=== PATIENT | female | born 1990 | race African-American/Black ===

== ENCOUNTER 2019-10-15 12:41 | Emergency (ER) | payer OTHER ==
--- NOTE | 2019-10-15 13:33 | ER Document Report ---
ED Medical Screen (RME) - General Chief Complaint: Dizziness Stated Complaint: WEAKNESS Notes: 29-year-old female with a history of anxiety presenting today with 2 weeks of intermittent dizziness and lightheadedness. States that the symptoms occur mostly when she goes from sitting to standing and in a moving vehicle but do occur at rest. Reports that when the symptoms do occur she feels that the room is spinning around her. Symptoms last for 30 minutes to an hour. Is not taking any medications. She denies currently being dizzy but does not feel that she is all here. In the past she has had episodes of lightheadness from going from sitting to standing too quickly but no associated dizziness. She was seen at [facility] last week and they did not find any abnormal findings. Her episodes have continued. 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 Also reports that her ears have been burning bilaterally for months and she keeps being told that it is due to her allergies. Uncertain of last menstrual period as she came off control a month ago. Denies additional symptoms. I have greeted and performed a rapid initial assessment of this patient. A comprehesive ED assessment and evaluation of this patient, analysis of test results and completion of the medical decision-making process will be conducted by additional ED providers. - Related Data Allergies/Adverse Reactions: Penicillins Allergy (Verified 10/15/19 13:06) sulfamethoxazole [From Bactrim] Allergy (Verified 10/15/19 13:06) trimethoprim [From Bactrim] Allergy (Verified 10/15/19 13:06) Home Medications: valtrex Past Medical History - Social History Chew tobacco use (# tins/day): No Frequency of alcohol use: Occasional Drug Abuse: None - Past Medical History Cardiac Medical History: Reports: None Pulmonary Medical History: Reports: None Endocrine Medical History: Reports: None Review of Systems - Review of Systems Constitutional: See HPI EENT: See HPI Cardiovascular: No symptoms reported Respiratory: No symptoms reported Gastrointestinal: No symptoms reported Genitourinary: No symptoms reported Physical Exam - Vital signs Vitals: Temp Pulse Resp BP Pulse Ox 98.8 F 105 H 14 121/74 99 10/15/19 12:46 10/15/19 12:46 10/15/19 12:46 10/15/19 12:46 10/15/19 12:46 - Notes Notes: Patient in no acute distress. Pupils equal round reactive to light, extraocular movements intact. Heart regular rate rhythm no murmurs rubs or gallops. Course - Vital Signs Vital signs: Temp Pulse Resp BP Pulse Ox 98.8 F 105 H 14 121/74 99 10/15/19 13:06 10/15/19 12:46 10/15/19 12:46 10/15/19 12:46 10/15/19 12:46
[2019-10-15] MEDS ORDERED: MECLIZINE HCL 25 MG TABLET PO ONE (13:36)
[2019-10-15 14:25] LABS: ABSOLUTE LYMPHOCYTES (AUTO) 1.8 10^3/uL (0.5-4.7); ABSOLUTE MONOCYTES (AUTO) 0.4 10^3/uL (0.1-1.4); ABSOLUTE NEUT (AUTO) 1.8 10^3/uL (1.7-8.2); BASOPHILS % (AUTO) 0.5 % (0-2); HEMATOCRIT 41.6 % (36.0-47.0); HEMOGLOBIN 14.2 g/dL (12.0-15.5); LYMPHOCYTES % (AUTO) 45.3 % (13-45); MEAN CORPUSCULAR HEMOGLOBIN 31.3 pg (27.0-33.4); MEAN CORPUSCULAR HGB CONC 34.1 g/dL (32.0-36.0); MEAN CORPUSCULAR VOLUME 92 fl (80-97); MONOCYTES % (AUTO) 9.6 % (3-13); PLATELET COUNT 312 10^3/uL (150-450); RED BLOOD COUNT 4.53 10^6/uL (3.72-5.28); RED CELL DISTRIBUTION WIDTH 12.6 % (11.5-14.0); SEGMENTED NEUTROPHILS % (AUTO) 43.6 % (42-78); TOTAL CELLS COUNTED % (AUTO) 100 %
[2019-10-15 14:32] LABS: APPEARANCE,URINE SLIGHTLY-CLOUDY; BILIRUBIN,URINE NEGATIVE (NEGATIVE); COLOR,URINE AMBER; GLUCOSE, URINE NEGATIVE (NEGATIVE); KETONES,URINE NEGATIVE (NEGATIVE); LEUKOCYTE ESTERASE,URINE NEGATIVE (NEGATIVE); NITRITE,URINE NEGATIVE (NEGATIVE); PROTEIN,URINE NEGATIVE (NEGATIVE); URINE SPECIFIC GRAVITY 1.021; UROBILINOGEN,URINE NEGATIVE mg/dL (<2.0)
[2019-10-15 14:45] LABS: ALBUMIN 4.2 g/dL (3.5-5.0); ALKALINE PHOSPHATASE 51 U/L (38-126); ASPARTATE AMINO TRANSFERASE 20 U/L (14-36); BILIRUBIN,TOTAL 0.4 mg/dL (0.2-1.3); BLOOD UREA NITROGEN 10 mg/dL (7-20); CALCIUM 9.5 mg/dL (8.4-10.2); GLUCOSE 85 mg/dL (75-110); POTASSIUM 4.8 mmol/L (3.6-5.0); TOTAL PROTEIN 7.5 g/dL (6.3-8.2)
[2019-10-15 14:51] LABS: CARBON DIOXIDE 28 mmol/L (22-30); CHLORIDE 104 mmol/L (98-107)
[2019-10-15 14:54] LABS: ANION GAP 4 (5-19)
--- NOTE | 2019-10-15 16:33 | RADIOLOGY REPORT (SQ) ---
EXAM DESCRIPTION: CT FACIAL AREA WITHOUT IMAGES COMPLETED DATE/TIME: 10/15/2019 4:16 pm REASON FOR STUDY: sinus pain, vertigo COMPARISON: None. TECHNIQUE: Noncontrasted images through the facial bones and orbits windowed for bone and soft tissu e. Additional coronal and sagittal reconstructed images reviewed. All images stored on PACS. All CT scanners at this facility use dose modulation, iterative reconstruction, and/or weight based d osing when appropriate to reduce radiation dose to as low as reasonably achievable (ALARA). [facility]: Dose Right [facility]: CareDose [facility]: Dose Right [facility]: Teradose 4D [facility]: [employer] RADIATION DOSE: CT Rad equipment meets quality standard of care and radiation dose reduction techniq ues were employed. CTDIvol: 30.4 mGy. DLP: 602 mGy-cm. mGy. LIMITATIONS: None. FINDINGS: FACIAL BONES: No fracture or bone lesion. ORBITS: Intact. No fracture. Symmetric intact globes and retroorbital soft tissues. PARANASAL SINUSES: There is a retention cyst or polyp in the left maxillary sinus. The rim is calcif ied consistent with chronic process. No air-fluid levels. The remainder of the paranasal sinuses ar e clear. SOFT TISSUES: No mass or edema. INFERIOR BRAIN: Limited view. No acute findings. OTHER: No other significant finding. IMPRESSION: Chronic changes in the left maxillary sinus as described. No other significant findings . TECHNICAL DOCUMENTATION: JOB ID: [id number] Quality ID # [id number]: Final reports with documentation of one or more dose reduction techniques (e.g., Au tomated exposure control, adjustment of the mA and/or kV according to patient size, use of iterative reconstruction technique) 2010 [employer]- All Rights Reserved Reading location - IP/workstation name: [email or web address]
--- NOTE | 2019-10-15 17:19 | ER Document Report ---
HPI - HPI Time Seen by Provider: 10/15/19 15:12 Pain Level: 3 Notes: RME HPI: 29-year-old female with a history of anxiety presenting today with 2 weeks of intermittent dizziness and lightheadedness. States that the symptoms occur mostly when she goes from sitting to standing and in a moving vehicle but do occur at rest. Reports that when the symptoms do occur she feels that the room is spinning around her. Symptoms last for 30 minutes to an hour. Is not taking any medications. She denies currently being dizzy but does not feel that she is all here. In the past she has had episodes of lightheadness from going from sitting to standing too quickly but no associated dizziness. She was seen at [facility] last week and they did not find any abnormal findings. Her episodes have continued. 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 Also reports that her ears have been burning bilaterally for months and she keeps being told that it is due to her allergies. Uncertain of last menstrual period as she came off control a month ago. Denies additional symptoms. - ROS Systems Reviewed and Negative: Yes All other systems reviewed and negative - CONSTITUTIONAL Constitutional: DENIES: Fever, Chills - EENT EENT: REPORTS: Ear Pain - NEURO Neurology: REPORTS: Dizzinesss / Vertigo Past Medical History - General Information source: Patient - Social History Smoking Status: Never Smoker Chew tobacco use (# tins/day): No Frequency of alcohol use: Occasional Drug Abuse: None Family History: Reviewed & Not Pertinent - Past Medical History Cardiac Medical History: Reports: None Pulmonary Medical History: Reports: None Endocrine Medical History: Reports: None Vertical Provider Document - CONSTITUTIONAL Notes: PHYSICAL EXAMINATION: GENERAL: Well-appearing, well-nourished and in no acute distress. HEAD: Atraumatic, normocephalic. EYES: Pupils equal round and reactive to light, extraocular movements intact, c onjunctiva are normal. ENT: Nares patent erythematous, oropharynx clear without exudates. Moist mucous membranes. Bilateral TMs unremarkable NECK: Normal range of motion, supple without lymphadenopathy LUNGS: Breath sounds clear to auscultation bilaterally and equal. No wheezes rales or rhonchi. HEART: Regular rate and rhythm without murmurs ABDOMEN: Soft, nontender, nondistended abdomen. No guarding, no rebound. No masses appreciated. Female : deferred Musculoskeletal: Normal range of motion, no pitting or edema. No cyanosis. NEUROLOGICAL: Cranial nerves grossly intact. Normal speech, normal gait. Normal sensory, motor exams PSYCH: Normal mood, normal affect. SKIN: Warm, Dry, normal turgor, no rashes or lesions noted. Course - Re-evaluation Re-evalutation: Patient appears well, nontoxic, vital signs reviewed. Patient reports she feels improved after administration of the meclizine here in the emergency department. She does report feeling a intermittent tingling sensation around her entire mouth. She is also concerned that she may have something going on in her sinuses due to having a sinus surgery in May and having no follow-up. Patient would like imaging done today. CT of the sinuses shows a left-sided sinus polyp. This is the area that patient had surgery on back in May. Test results were reviewed with patient, she was given a copy of her CT results as she has an appointment with her ENT tomorrow morning. Patient will follow-up. - Vital Signs Vital signs: Temp Pulse Resp BP Pulse Ox 98.8 F 105 H 14 121/74 99 10/15/19 13:06 10/15/19 12:46 10/15/19 12:46 10/15/19 12:46 10/15/19 12:46 - Laboratory Result Diagrams: 10/15/19 13:46 10/15/19 13:46 Laboratory results interpreted by me: 10/15/19 10/15/19 13:46 13:46 Lymph % (Auto) 45.3 H Sodium 135.8 L Anion Gap 4 L Discharge - Discharge Clinical Impression: Nasal sinus polyp, Dizziness, Vertigo Condition: Stable Disposition: HOME, SELF-CARE Additional Instructions: Please take medications as prescribed. Please follow-up with your ENT doctor tomorrow as discussed. Prescriptions: Ketorolac Tromethamine [Toradol 10 mg Tablet] 10 mg PO Q6HP PRN #20 tablet PRN Reason: Meclizine HCl [Antivert 25 mg Tablet] 25 mg PO TID PRN #21 tablet PRN Reason: Referrals: SARA MONTENEGRO MD [ACTIVE STAFF] - Follow up as needed
[2019-10-15 17:26] VITALS: BP 125/83
--- NOTE | 2019-10-15 17:34 | EKG REPORT ---
SEVERITY:- BORDERLINE ECG - SINUS RHYTHM PROBABLE LEFT ATRIAL ABNORMALITY : Confirmed by: Chelsea Ling MD 15-Oct-2019 17:34:30
== END 2019-10-15 17:26 | disposition home or self-care (01) ==
LOC: ER 12:41
DX: R42 Dizziness and giddiness (principal); Z88.0 Allergy status to penicillin; Z88.3 Allergy status to other anti-infective agents; J33.8 Other polyp of sinus
CPT/HCPCS: 36415; 70486; 80053; 81001; 81025; 85025; 93005; 93010; 99285

== ENCOUNTER 2020-04-08 17:50 | Emergency (ER) | payer OTHER ==
[2020-04-08] MEDS ORDERED: ACETAMINOPHEN 325 MG TABLET PO ONE (18:04)
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
[2020-04-08 18:27] LABS: ABSOLUTE EOSINOPHILS # (AUTO) 0.1 10^3/uL (0.0-0.6); ABSOLUTE LYMPHOCYTES (AUTO) 2.8 10^3/uL (0.5-4.7); ABSOLUTE MONOCYTES (AUTO) 0.2 10^3/uL (0.1-1.4); ABSOLUTE NEUT (AUTO) 1.3 10^3/uL (1.7-8.2); BASOPHILS % (AUTO) 0.9 % (0-2); EOSINOPHILS % (AUTO) 1.6 % (0-6); HEMOGLOBIN 13.7 g/dL (12.0-15.5); LYMPHOCYTES % (AUTO) 62.4 % (13-45); MEAN CORPUSCULAR HEMOGLOBIN 32.2 pg (27.0-33.4); MEAN CORPUSCULAR HGB CONC 35.9 g/dL (32.0-36.0); MEAN CORPUSCULAR VOLUME 90 fl (80-97); MONOCYTES % (AUTO) 5.5 % (3-13); PLATELET COUNT 325 10^3/uL (150-450); RED BLOOD COUNT 4.24 10^6/uL (3.72-5.28); RED CELL DISTRIBUTION WIDTH 13.7 % (11.5-14.0); SEGMENTED NEUTROPHILS % (AUTO) 29.6 % (42-78); TOTAL CELLS COUNTED % (AUTO) 100 %; WHITE BLOOD COUNT 4.4 10^3/uL (4.0-10.5)
--- NOTE | 2020-04-08 18:41 | ER Document Report ---
Doctor's Note Notes: 04/08/20 18:40 Received call from radiologist that patient has a left subarachnoid hemorrhage. I did notify the charge nurse, Susie, at [address] Gayle Samson, ER supervising physician of patient's CT findings per radiology. Patient will go into room 15 for further examination immediately.
[2020-04-08 18:43] LABS: ALBUMIN 4.3 g/dL (3.5-5.0); ALKALINE PHOSPHATASE 56 U/L (38-126); ANION GAP 5 (5-19); ASPARTATE AMINO TRANSFERASE 22 U/L (14-36); BILIRUBIN,TOTAL 0.3 mg/dL (0.2-1.3); BLOOD UREA NITROGEN 16 mg/dL (7-20); CARBON DIOXIDE 29 mmol/L (22-30); CHLORIDE 102 mmol/L (98-107); GLUCOSE 161 mg/dL (75-110); POTASSIUM 4.3 mmol/L (3.6-5.0); TOTAL PROTEIN 7.8 g/dL (6.3-8.2)
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
[2020-04-08 19:00] LABS: C-REACTIVE PROTEIN < 5.0 mg/L (<10.0)
[2020-04-08 19:05] LABS: ERYTHROCYTE SEDIMENTATION RATE 18 mm/hr (0-20)
[2020-04-08] MEDS ORDERED: LEVETIRACETAM 1000 MG/NACL-ISO 1,000 MG/100 ML RTUPB IV ONE (19:13)
[2020-04-08] MEDS ORDERED: TRANEXAMIC ACID INJ/PF 1,000 MG/10 ML SDV IV ONE (19:15)
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
[2020-04-08 20:25] VITALS: BP 117/70
--- NOTE | 2020-04-08 21:15 | EKG REPORT ---
SEVERITY:- ABNORMAL ECG - SINUS RHYTHM EARLY PRECORDIAL TRANSITION , CLINICAL CORRELATION NEEDED. : Confirmed by: Desmond Painter MD 08-Apr-2020 21:14:27
== END 2020-04-08 20:27 | disposition short-term general hospital (02) ==
LOC: ER 17:50
DX: I60.9 Nontraumatic subarachnoid hemorrhage, unspecified (principal); R51.9 Headache, unspecified; Z88.0 Allergy status to penicillin; Z88.3 Allergy status to other anti-infective agents; Z20.828 Contact with and (suspected) exposure to other viral communicable diseases
CPT/HCPCS: 93005; 99285; 96375; 96365; 36415; 84702; 85025; 85652; 0241U ×4; 86140; 80053; 84484; 70450; 93010; J1953; J3490; C9803

== ENCOUNTER 2020-04-12 03:04 | Emergency (ER) | payer OTHER ==
--- NOTE | 2020-04-12 03:32 | ER Document Report ---
ED General - General Chief Complaint: Headache Stated Complaint: HEADACHE Time Seen by Provider: 04/12/20 03:32 Primary Care Provider: ABDIEL ART MD [ACTIVE STAFF] - Follow up as needed - HPI Context: Chief Complaint: [Headache] [This is a 29-year-old female who presents to the emergency department complaining of headache. Patient was seen here 4 days ago for a severe headache, was found to have a subarachnoid hemorrhage on her head CT and was transferred to [facility] for further care. Patient was given TXA and Keppra prior to transfer. Patient states that she was discharged from [facility] 2 days ago with instructions to use Tylenol every 4 hours as needed for headache. Patient states she was doing this for roughly the first 24 hours after discharge from the hospital. Patient states that she has gone approximately 8 or 9 hours without a dose of Tylenol and then prior to coming into notice onset of sharp frontal headache that she says was similar to the headache that brought her in 4 days ago. Patient states her headache was initially a 4 on a scale of 0-5 but after taking Tylenol now it is down to a 2.5 on a scale of 0-5. Patient is inquiring as to whether or not she can be given a prescription for Fioricet which was offered to her at [facility] prior to kathy bajwa but she initially refused, just deciding instead to take Tylenol only. Patient was advised that she would probably experience headaches for the next 2 weeks or so. ] History obtained from [patient] Symptoms began:[Approximately 2 hours prior to arrival] Onset: [Sudden] Timing: [While sleeping] Quality: [Sharp] Intensity: [Initially 4 out of 5 now 2.5] Location: [Front of head] Radiation: [None] Aggravating factors: [none] Relieving factors: [none] [Denies] SOB [Denies] nausea [Denies] vomiting [Denies] sweats [Denies] fever [Denies] cough [Denies] calf or leg swelling or pain - Related Data Allergies/Adverse Reactions: Penicillins Allergy (Verified 04/12/20 03:13) sulfamethoxazole [From Bactrim] Allergy (Verified 04/12/20 03:13) trimethoprim [From Bactrim] Allergy (Verified 04/12/20 03:13) Past Medical History - General Information source: Patient - Social History Smoking Status: Never Smoker Drug Abuse: None Family History: Reviewed & Not Pertinent - Medical History Medical History: Other - Subarachnoid hemorrhage 04/08/2020 Review of Systems - Review of Systems Notes: Review of systems as below unless otherwise stated in HPI. CONSTITUTIONAL [No] fever, [No] chills. EYES [No] eye pain. ENT [No] URI symptoms, [No] sore throat, [No] ear pain. CARDIOVASCULAR [No] chest pain, [No] palpitations, [No] edema. RESPIRATORY [No] Cough, [No] SOB, [No] wheezing. GASTROINTESTINAL [No] abdominal pain, [No] nausea, [No] Diarrhea, [No] Vomiting, [No] constipation, [No] melena, [No] rectal bleeding. GENITOURINARY [No] dysuria, [No] urinary frequency, [No] hematuria, [No] urinary urgency, [No] vaginal discharge, [No] vaginal bleeding. MUSCULOSKELETAL [No] Back pain. SKIN [No] Rash. NEUROLOGIC Positive headache, [No] recent seizures, [No] paralysis,[No] parathesias. ENDOCRINE [No] polyuria. HEMO/LYMPATIC [No] easy brusing PSYCHIATRIC [No] depression. Physical Exam - Vital signs Vitals: Temp Pulse BP Pulse Ox 97.6 F 66 124/70 100 04/12/20 03:09 04/12/20 03:09 04/12/20 03:09 04/12/20 03:09 - Notes Notes: CONSTITUTIONAL [Vital signs reviewed, Patient appears comfortable, Alert and oriented X 3, Normal stature. GCS 15] HEAD [Atraumatic, Normocephalic.] EYES [Eyes are normal to inspection, No discharge from eyes, Extraocular muscles intact, Sclera are normal, Conjunctiva are normal.] ENT [External ears normal to inspection, Nose examination normal, Mouth normal to inspection.] NECK [Normal ROM, No jugular venous distention, No meningeal signs, ] RESPIRATORY CHEST [Chest is nontender, Breath sounds normal, No respiratory distress.] CARDIOVASCULAR [RRR, No murmurs, Normal S1 S2, No rub, No gallop.] ABDOMEN [Abdomen is nontender, No pulsatile masses, No other masses, Bowel sounds normal, No distension, No peritoneal signs, No hernias.] BACK [There is no CVA Tenderness, There is no tenderness to palpation, Normal inspection.] UPPER EXTREMITY [Inspection normal, No cyanosis, No clubbing, No edema, LOWER EXTREMITY [Inspection normal, No cyanosis, No clubbing, No edema, No calf tenderness, NEURO [No focal motor deficits, No focal sensory deficits, Speech normal.] SKIN [Skin is warm, Skin is dry, Skin is normal color.] PSYCHIATRIC [Normal affect. ] Course - Re-evaluation Re-evalutation: 04/12/20 06:52 Patient states her headache has resolved. Results of ED MSE and consultation with Dr. Gonzalez with [facility] neurosurgery discussed with patient. All questions were answered prior to discharge. Emergency signs and symptoms, reasons to return to the emergency department discussed with patient. - Vital Signs Vital signs: Temp Pulse Resp BP Pulse Ox 97.6 F 66 17 127/85 H 99 04/12/20 03:09 04/12/20 03:09 04/12/20 05:01 04/12/20 05:00 04/12/20 05:01 - Laboratory Results Result Diagrams: 04/12/20 03:34 04/12/20 03:34 Laboratory Results Interpreted: 04/12/20 03:34 Lymph % (Auto) 57.9 H Absolute Neuts (auto) 1.5 L Seg Neutrophils % 29.8 L Critical Laboratory Results Reviewed: No Critical Results Attending or Supervising Physician who Reviewed Labs: ODALYS OCHOA IV - Radiology Results Critical Radiology Results Reviewed: Yes Attending or Supervising Physician who Reviewed Radiology: ODALYS OCHOA IV - CT done today as compared to CT from 04/08/2020. Radiologist impression: Decrease in but small amount of residual subarachnoid hemorrhage in the left parieto-occipital region with no evidence of new or worsening hemorrhage - EKG Interpretation by Me Additional EKG results interpreted by me: 04/12/20 06:35 EKG obtained on 04/12/2020 at 0616 hrs. was interpreted by this MD. Findings: Normal sinus rhythm, rate 69, normal axis, IA interval appears to be within normal limits, P waves preceding QRS complexes, QRS complexes appear narrow, QTC is 446, there are no obvious patterns of ST segment elevation, depression or reciprocal changes seen to suggest acute myocardial ischemia or infarction. When compared with EKG from 04/08/2020, the gross morphology of the 2 EKGs ap pears unchanged. Impression: Normal sinus rhythm with nonspecific ST segments. - Consults Dr. Gonzalez, [facility] Neurosurgery Time consulted: 06:38 - Images were pushed over to [facility]. Dr. Gonzalez reviewed the CTs from 04/08/2020 and from today 04/12/2020 and stated that there appears to be no evidence of new bleed. He stated that it would be reasonable to write the patient for a few Fioricet tablets and then return to taking her rhythm counter pain medications, even Motrin. He stated that no evidence of aneurysm was found with their imaging done at [facility] and none was found with the catheter angiography either. At this time, he sees no need for further evaluation or imaging, just symptomatic treatment of headache is suf ficient along with warning signs explained to patient. Reason for consultation: 04/12/20 06:54 Recently seen at this facility and transferred to [facility] for subarachnoid hemo rrhage, returning tonight complaining of headache Discharge - Discharge Clinical Impression: Acute headache with normal neurologic examination, History of spontaneous subarachnoid intracranial hemorrhage Acute nonintractable headache Qualifiers: Headache type: unspecified Qualified Code(s): R51.9 - Headache, unspecified Condition: Stable Disposition: HOME, SELF-CARE Additional Instructions: Return to the Emergency Department without delay if any worse. Your CAT scans from 04/08/2020 and today, 04/12/2020 were reviewed and discussed with [facility] neurosurgeon, Dr. Gonzalez. It appears that the amount of blood from your subarachnoid hemorrhage is reduced and there is no evidence of a new bleed. You are being prescribed a few Fioricet tablets to use at bedtime. During the day you should continue to use Tylenol every 4 hours for the next several days. If it anytime your headache returns or if you have any trouble with walking, talking, seeing or nausea and vomiting, call 911 immediately. HOME CARE INSTRUCTIONS & INFORMATION: Thank you for choosing us for your [facility] needs. We hope you're satisfied with the care you received. After you leave, you must properly care for your problem and, at the same time, observe its progress. Any condition can change. Some illnesses can change rapidly over hours or days. If your condition worsens, return to the Emergency Department or see your physician promptly. ABOUT YOUR X-RAYS AND EKG'S: If you had an EKG or X-rays taken, they have been read by the Emergency Physician. The X-rays and EKG's will also be read by a Radiologist or Cook Apprentice within 24 hours. If discrepancies are noted, you will be notified by telephone. Please be certain the ED has a correct telephone number & address where you can be reached. Also, realize that some fractures or abnormalities do not show up on initial X-rays. If your symptoms continue, see your physician. ABOUT YOUR LABORATORY TEST: If you had laboratory tests, the results have been reviewed by the Emergency Physician. Some test results (for example cultures) may not be available for several days. You will be contacted if any test result shows you need additional treatment. Please be certain the ED has a correct telephone number and address where you can be reached. ABOUT YOUR MEDICATIONS: You will receive instructions on how to take your medicine on the prescription label you receive. Additional information may be provided by the Pharmacy. If you have questions afterwards, call the ED for clarification or further instructions. Some prescribed medications may cause drowsiness. Do not perform tasks such as driving a car or operating machinery without consulting your Pharmacist. If you feel you need a refill of pain medication, your condition will need re-evaluation. Please do not call for a refill of any medication. ABOUT YOUR SIGNATURE: Signature of this document acknowledges to followin. Understanding that you received emergency treatment and that you may be released before al medical problems are known or treated. Please be certain the ED has a correct phone number & address where you can be reached. 2. Acknowledgement that you will arrange for follow-up care as recommended. 3. Authorization for the Emergency Physician to provide information to your follow-up Physician in order to maximize your care. AT ANY TIME, IF YOUR SYMPTOMS CHANGE SIGNIFICANTLY OR WORSEN OR YOU DEVELOP NEW SYMPTOMS, RETURN TO THE EMERGENCY DEPARTMENT IMMEDIATELY FOR RE-EVALUATION. OUR GOAL IS TO PROVIDE EXCELLENT MEDICAL CARE! WE HOPE THAT WE HAVE MET YOUR EXPECTATIONS DURING YOUR EMERGENCY DEPARTMENT VISIT AND THAT YOU FEEL YOU HAVE RECEIVED EXCELLENT CARE! Prescriptions: Butalb/Acetaminophen/Caffeine [Fioricet (50-325-40 mg) Tablet] 1 tab PO HSP PRN #6 tab PRN Reason: Referrals: ABDIEL ART MD [ACTIVE STAFF] - Follow up as needed
[2020-04-12 03:46] LABS: ABSOLUTE EOSINOPHILS # (AUTO) 0.1 10^3/uL (0.0-0.6); ABSOLUTE LYMPHOCYTES (AUTO) 2.9 10^3/uL (0.5-4.7); ABSOLUTE MONOCYTES (AUTO) 0.5 10^3/uL (0.1-1.4); ABSOLUTE NEUT (AUTO) 1.5 10^3/uL (1.7-8.2); BASOPHILS % (AUTO) 0.8 % (0-2); HEMOGLOBIN 12.8 g/dL (12.0-15.5); LYMPHOCYTES % (AUTO) 57.9 % (13-45); MEAN CORPUSCULAR HEMOGLOBIN 31.1 pg (27.0-33.4); MEAN CORPUSCULAR HGB CONC 34.5 g/dL (32.0-36.0); MEAN CORPUSCULAR VOLUME 90 fl (80-97); MONOCYTES % (AUTO) 9.5 % (3-13); PLATELET COUNT 301 10^3/uL (150-450); RED BLOOD COUNT 4.11 10^6/uL (3.72-5.28); RED CELL DISTRIBUTION WIDTH 13.5 % (11.5-14.0); SEGMENTED NEUTROPHILS % (AUTO) 29.8 % (42-78); TOTAL CELLS COUNTED % (AUTO) 100 %; WHITE BLOOD COUNT 4.9 10^3/uL (4.0-10.5)
[2020-04-12 03:51] LABS: INTERNATIONAL RATION (INR) 0.84; PROTHROMBIN TIME 11.7 SEC (11.4-15.4)
[2020-04-12 03:52] LABS: PARTIAL THROMBOPLASTIN TIME 30.1 SEC (23.5-35.8)
[2020-04-12 04:07] LABS: ALKALINE PHOSPHATASE 56 U/L (38-126); ANION GAP 5 (5-19); ASPARTATE AMINO TRANSFERASE 20 U/L (14-36); BILIRUBIN,DIRECT 0.1 mg/dL (0.0-0.4); BILIRUBIN,TOTAL 0.3 mg/dL (0.2-1.3); BLOOD UREA NITROGEN 15 mg/dL (7-20); CALCIUM 9.5 mg/dL (8.4-10.2); CARBON DIOXIDE 29 mmol/L (22-30); CHLORIDE 105 mmol/L (98-107); GLUCOSE 101 mg/dL (75-110); POTASSIUM 4.3 mmol/L (3.6-5.0); TOTAL PROTEIN 6.9 g/dL (6.3-8.2)
[2020-04-12] MEDS ORDERED: BUTALB/ACETAMINOPHEN/CAFFEINE 1 TAB EACH PO ONE (04:13)
--- NOTE | 2020-04-12 04:17 | RADIOLOGY REPORT (SQ) ---
CT head without contrast on 04/12/2020 at 3:33 AM CLINICAL INDICATION: Headache, recent subarachnoid hemorrhage TECHNIQUE: Multiple axial images are obtained throughout the head without the administration of contrast. This exam was performed according to our departmental dose-optimization program, which includes automated exposure control, adjustment of the mA and/or kV according to patient size and/or use of iterative reconstruction technique. Total DLP is 910.77 mGy*cm. COMPARISON: 04/08/2020 FINDINGS: There is no hydrocephalus. There has been decrease in the prior left-sided subarachnoid hemorrhage that is now greatest in the left parietal and occipital region with small amount of subarachnoid hemorrhage now present. There is no CT evidence of acute infarct. There are no abnormal extra-axial fluid collections. There is no mass, mass effect or midline shift. No evidence of new or worsening hemorrhage is noted. No bony abnormality is noted. IMPRESSION: Decrease in but small amount of residual subarachnoid hemorrhage in the left parietal-occipital region with no evidence of new or worsening hemorrhage.
[2020-04-12 04:33] LABS: ALBUMIN 3.8 g/dL (3.5-5.0)
[2020-04-12 07:29] VITALS: BP 111/77
--- NOTE | 2020-04-12 08:36 | EKG REPORT ---
SEVERITY:- OTHERWISE NORMAL ECG - SINUS RHYTHM EARLY PRECORDIAL TRANSITION : Confirmed by: Desmond Painter MD 12-Apr-2020 08:36:08
== END 2020-04-12 07:29 | disposition home or self-care (01) ==
LOC: ER 03:04
DX: R51.9 Headache, unspecified (principal); Z79.899 Other long term (current) drug therapy; Z88.0 Allergy status to penicillin; Z88.2 Allergy status to sulfonamides; Z88.8 Allergy status to other drugs, medicaments and biological substances
CPT/HCPCS: 93005; 99285; 36415; 85025; 85610; 85730; 80053; 70450; 93010; J3490